=== PATIENT | female | born 1985 | race Caucasian/White ===

== ENCOUNTER → 2017-03-29 | Outpatient (REF) | payer OTHER | LOC: M SFHCCLAY 09:21 | DX: Z12.4 Encounter for screening for malignant neoplasm of cervix (principal); Z72.51 High risk heterosexual behavior | CPT/HCPCS: 87070 ==

== ENCOUNTER 2018-04-22 04:18 | Emergency (ER) | payer OTHER, SELFPAY ==
[~2018-04-22 04:18] MED LIST: MOTR200T44 PO; TYLE325T5 PO
[2018-04-22 05:07] LABS: HEMATOCRIT 39.7 % (36.0-47.0); HEMOGLOBIN 12.9 g/dl (12.0-15.5); MEAN CORPUSCULAR HEMOGLOBIN 29.7 pg (27.0-33.0); MEAN CORPUSCULAR HGB CONC 32.5 g/dl (32.0-36.5); MEAN CORPUSCULAR VOLUME 91.5 fl (80.0-96.0); PLATELET COUNT, AUTOMATED 232 10^3/uL (150-450); RED BLOOD COUNT 4.34 10^6/uL (4.00-5.40); WHITE BLOOD COUNT 10.6 10^3/uL (4.0-10.0)
[2018-04-22 05:36] LABS: AMPHETAMINES LEVEL URINE NEGATIVE (NEGATIVE); BARBITURATES URINE NEGATIVE (NEGATIVE); BENZODIAZEPINES URINE NEGATIVE (NEGATIVE); CANNABINOIDS URINE NEGATIVE (NEGATIVE); COCAINE METABOLITE URINE NEGATIVE (NEGATIVE); METHADONE URINE NEGATIVE (NEGATIVE); OPIATES URINE NEGATIVE (NEGATIVE); PHENCYCLIDINE URINE NEGATIVE (NEGATIVE)
[2018-04-22 05:48] LABS: HCG, SERUM QUALITATIVE NEGATIVE (NEGATIVE)
[2018-04-22 06:02] LABS: ACETAMINOPHEN LEVEL < 2.0 UG/ML (10.0-30.0); ALBUMIN 4.3 GM/DL (3.2-5.2); ALT/SGPT 58 U/L (12-78); BILIRUBIN,DIRECT < 0.1 MG/DL (0.0-0.2); BILIRUBIN,TOTAL 0.1 MG/DL (0.2-1.0); BLOOD UREA NITROGEN 10 MG/DL (7-18); CALCIUM LEVEL 8.5 MG/DL (8.5-10.1); CARBON DIOXIDE LEVEL 29 MEQ/L (21-32); CHLORIDE LEVEL 107 MEQ/L (98-107); CREATININE FOR GFR 0.58 MG/DL (0.55-1.30); ETHYL ALCOHOL (ETHANOL) 0.193 % (0.000-0.010); GLOMERULAR FILTRATION RATE > 60.0 (>60); GLUCOSE, FASTING 101 MG/DL (70-100); POTASSIUM SERUM 4.1 MEQ/L (3.5-5.1); SALICYLATE LEVEL < 1.7 MG/DL (5.0-30.0); SODIUM LEVEL 144 MEQ/L (136-145)
[2018-04-22 10:58] VITALS: BP 137/75
== END 2018-04-22 10:59 | disposition home or self-care (01) ==
LOC: M ED 04:18
DX: F10.229 Alcohol dependence with intoxication, unspecified (principal); Z88.0 Allergy status to penicillin; F17.210 Nicotine dependence, cigarettes, uncomplicated
CPT/HCPCS: 36415; 80048; 80076; 80307; 84443; 84703; 85027; 99284; G0480

== ENCOUNTER 2018-11-22 07:33 | Day surgery (SDC) | payer OTHER ==
[2018-11-22] VITALS (8 sets, daily range): BP systolic 98–137; BP diastolic 62–76
[~2018-11-22] VITALS: Ht 157.5 cm; Wt 56.0 kg
[~2018-11-22 07:33] MED LIST changes: +LR 1,000 ML IV ONE; +QC A650T3 PO
[2018-11-22] MEDS ORDERED: dexameTHASONE 4 MG/ML 1ML VIAL (J1100) As Ordered ONE (08:19)
[2018-11-22] MEDS ORDERED: PROPOFOL 200 MG/20 ML VIAL As Ordered ONE (08:19)
[2018-11-22] MEDS ORDERED: fentaNYL 250 MCG/5 ML INJECTION (J3010) As Ordered ONE (08:19)
[2018-11-22] MEDS ORDERED: ONDANSETRON 4MG/2ML VIAL (J2405) As Ordered ONE (08:19)
[2018-11-22] MEDS ORDERED: LIDOCAINE 2% INJ 100 MG/5 ML SDV (FOR ANES.) As Ordered ONE (08:19)
[2018-11-22] MEDS ORDERED: ROCURONIUM BROMIDE 50 MG/5 ML VIAL As Ordered ONE (08:19)
[2018-11-22] MEDS ORDERED: MIDAZOLAM INJ 2 MG/2 ML VIAL (J2250) As Ordered ONE (08:20)
[2018-11-22 08:25] LABS: HEMATOCRIT 40.9 % (36.0-47.0); HEMOGLOBIN 13.5 g/dl (12.0-15.5); MEAN CORPUSCULAR HEMOGLOBIN 30.6 pg (27.0-33.0); MEAN CORPUSCULAR VOLUME 92.7 fl (80.0-96.0); PLATELET COUNT, AUTOMATED 241 10^3/uL (150-450); RED BLOOD COUNT 4.41 10^6/uL (4.00-5.40); WHITE BLOOD COUNT 5.2 10^3/uL (4.0-10.0)
[2018-11-22 08:44] LABS: BLOOD UREA NITROGEN 14 MG/DL (7-18); CALCIUM LEVEL 8.9 MG/DL (8.5-10.1); CARBON DIOXIDE LEVEL 28 MEQ/L (21-32); CHLORIDE LEVEL 107 MEQ/L (98-107); CREATININE FOR GFR 0.71 MG/DL (0.55-1.30); GLOMERULAR FILTRATION RATE > 60.0 (>60); GLUCOSE, FASTING 93 MG/DL (70-100); SODIUM LEVEL 138 MEQ/L (136-145)
[2018-11-22 08:46] LABS: URINE PREG TEST NEGATIVE (NEGATIVE)
[2018-11-22] MEDS ORDERED: FLUORESCEIN 10% (100MG/ML) 5 ML VIAL As Ordered ONE (09:15)
[2018-11-22] MEDS ORDERED: BUPIVACAINE/EPIN 0.25% 30 ML VIAL As Ordered ONE (09:15)
[2018-11-22] MEDS ORDERED: ACETAMINOPHEN 1000MG 100ML IV BTL (OFIRMEV) (J0131 PER 10MG) As Ordered ONE (10:19)
[2018-11-22] MEDS ORDERED: KETOROLAC 60 MG/2 ML VIAL (J1885) As Ordered ONE (10:27)
[2018-11-22] MEDS ORDERED: METOCLOPRAMIDE INJ 10MG/2ML VIAL (J2765) As Ordered ONE (10:27)
[2018-11-22] MEDS ORDERED: PERCOCET 5MG/325MG TAB PO PRN (11:30)
[2018-11-22] MEDS ORDERED: PERCOCET PO (11:32)
[2018-11-22] MEDS ORDERED: IBUP80TA PO (11:32)
[2018-11-22] MEDS ORDERED: fentaNYL 100 MCG/2 ML INJECTION (J3010) IV PRN (12:00)
[2018-11-22] MEDS ORDERED: HYDROMORPHONE HCL 0.5 MG/ 0.5 ML SYRINGE (J1170 PER 1) IV PRN (12:00)
[2018-11-22] MEDS ORDERED: oxyCODONE 5MG TAB PO PRN (12:00)
[2018-11-22] MEDS: LR 1,000 ML IV SCH ×2 (12:00→20:00)
[2018-11-22] MEDS ORDERED: LR 1,000 ML IV SCH (12:00)
[2018-11-22] MEDS ORDERED: PROMETHAZINE INJ 25 MG/ML VIAL (J2550) IV PRN (12:00)
[2018-11-22] MEDS ORDERED: ONDANSETRON 4MG/2ML VIAL (J2405) IV PRN ×2 (12:00→18:30)
[2018-11-22] MEDS: PERCOCET 5MG/325MG TAB PO PRN ×2 (13:12→22:30)
[2018-11-22] MEDS: DOCUSATE SODIUM 100 MG CAP PO SCH (22:28)
[2018-11-23 02:00] VITALS: BP 102/56
[2018-11-23 06:00] VITALS: BP 114/57
[2018-11-23] MEDS: PERCOCET 5MG/325MG TAB PO PRN (06:20)
--- NOTE | 2018-11-23 07:26 | RO ---
DATE OF PROCEDURE: 11/22/2018 Romy is a 33-year-old female with extensive history of an enlarged fibroid uterus with heavy cycles as well as pelvic pain. After counseling in the office, the decision was made to proceed with a robotic-assisted total hysterectomy, removal of both tubes and cystoscopy. PREOPERATIVE DIAGNOSES: 1. Symptomatic enlarged fibroid uterus. 2. Pelvic pain. 3. Heavy menstrual cycle. POSTOPERATIVE DIAGNOSES: 1. Symptomatic enlarged fibroid uterus. 2. Pelvic pain. 3. Heavy menstrual cycle. PROCEDURE 1. Robotic-assisted total hysterectomy. 2. Bilateral salpingectomies 3. Myomectomy. 4. Cystoscopy. SURGEON: Dr. aBrry Da Silva. VIRTUALIZATION ENGINEER: ANTONIO Sigala ANESTHESIA: General COMPLICATIONS: None. ESTIMATED BLOOD LOSS: Less than 50 mL. FINDINGS: An extremely enlarged fibroid uterus with the fibroid measuring approximately 10-12 cm in size in the fundal area of the uterus. Normal-appearing tubes and ovaries. On cystoscopy bilateral urethral jets were noted. No evidence of any bladder injury noted. DESCRIPTION OF PROCEDURE: After obtaining informed consent the patient was taken to the operating room where general anesthetic was found to be adequate. She was then draped and prepped in the usual sterile fashion in the dorsal lithotomy position. At this point, a Piper catheter was placed in the bladder for drainage. We then placed a weighted speculum in the posterior fornix of the vagina using a Gonzalez retractor. The anterior lip of the cervix was then grasped with a single-tooth tenaculum. The HUMI uterine manipulator was then placed. At this point, we then turned our attention to the abdomen where 8 mm infraumbilical incision was made. Using the Veress needle the abdomen was insufflated with CO2 gas to approximately 3.5 liters. I then placed an 8 mm trocar under direct visualization, which will be used for robotic camera port. Then two 8 mm left lateral ports were placed under direct visualization as well as an 8 mm right lateral port. These were for robotic arm one and two as well as the assist port. At this point, the patient was placed in steep Trendelenburg. The robot was brought to the patient's right side. Proper targeting of the robot was performed. At this point, robotic arm one and two were docked. After proper docking of the robot the Vessel Sealer, as well as a bipolar grasper was placed. I then unscrubbed and went to the surgeon console and began the surgery. At this point the uterus was noted with a very large fibroid pushing in the posterior cul-de-sac. The left fallopian tube was identified. Using the vessel sealer the mesosalpinx was transected down to the utero-ovarian ligament, which was cauterized and cut using the Vessel Sealer. The round ligament was cauterized and cut in similar fashion. At this point, the anterior leaflet of the broad ligament was dissected to create a bladder flap. We then cauterized and cut the uterine artery all way down to the uterosacral ligament. The opposite side was done in similar fashion. The anterior leaflet of the broad ligament on the right side was dissected to complete the bladder flap. At this point the Vessel Sealer was removed. We then placed an EndoShears and anterior and posterior colpotomy was performed thereby transecting the entire cervix of the vaginal cuff. At this point, given the size of the fibroid as well as the uterus, a myomectomy to be performed to separate the uterus from the fibroid and both were removed through the vaginal opening. 1 mL of Furacin was given by the anesthesiologist. I then on unscrubbed and went to the surgeon console and closed the vaginal cuff using a #2-0 V-Loc suture in a running fashion. Pelvis copiously irrigated with normal saline and suctioned out. I then re-scrubbed and retrograde filled the bladder with 30 mL of normal saline. The Piper catheter was removed. A cystoscope was inserted. Cystoscopy was performed, bilateral urethral jets were noted. No evidence of any bladder injury noted. At this point the cystoscope was removed and the Piper catheter was replaced back in the bladder for drainage. The robot was completely undocked. All the ports removed and the robotic ports were then closed using #3-0 Vicryl in a subcuticular fashion. 0.25% Marcaine was placed for postoperative pain. The patient tolerated the procedure well. She was then transferred to recovery room in stable condition.
[2018-11-23] MEDS: DOCUSATE SODIUM 100 MG CAP PO SCH (08:55)
[2018-11-23] MEDS ORDERED: IBUPROFEN 800 MG TAB PO SCH (19:00)
== END 2018-11-23 11:00 | disposition home or self-care (01) ==
LOC: M SDC 07:33 → M MSPAV 12:20 → M SDC 11-23 11:00
PROVIDERS: ATTEND Obstetrics & Gynecology
DX: R10.2 Pelvic and perineal pain (principal); N92.0 Excessive and frequent menstruation with regular cycle; N85.2 Hypertrophy of uterus; D25.9 Leiomyoma of uterus, unspecified; N72 Inflammatory disease of cervix uteri; Z88.0 Allergy status to penicillin; Z88.5 Allergy status to narcotic agent
CPT/HCPCS: 36415; 58573; 80048; 84703; 85027; 86850; 86900; 86901; 88307; 96374; J0131; J0690; J1100; J1885; J2250; J2405; J2765; J3010

== ENCOUNTER → 2019-02-13 | Outpatient (CLI) | payer OTHER ==
[~2019-02-13] MED LIST changes: +IBUP80TA PO; -LR 1,000 ML IV ONE; +PERCOCET PO
== END ==
LOC: M OUTALCOH 08:20
PROVIDERS: ATTEND Psychiatry & Neurology Psychiatry
DX: Z03.89 Encounter for observation for other suspected diseases and conditions ruled out (principal)

== ENCOUNTER 2019-03-12 13:46 | Outpatient (RCR) | payer OTHER | END 2019-03-20 | LOC: M OUTALCOH 13:46 | PROVIDERS: ATTEND Psychiatry & Neurology Psychiatry | DX: Z03.89 Encounter for observation for other suspected diseases and conditions ruled out (principal) ==

== ENCOUNTER → 2019-12-05 | Outpatient (REF) | payer OTHER ==
[2019-12-05 13:03] LABS: APPEARANCE, URINE CLEAR (CLEAR); BACTERIA, URINE AUTO NEGATIVE (NEGATIVE); BILIRUBIN, URINE AUTO NEGATIVE (NEGATIVE); BLOOD, URINE BLOOD 2+ (NEGATIVE); COLOR, URINE YELLOW (YELLOW); GLUCOSE, URINE (UA) AUTO NEGATIVE (NEGATIVE); KETONE, URINE AUTO NEGATIVE (NEGATIVE); LEUKOCYTE ESTERASE, URINE AUTO NEGATIVE (NEGATIVE); MUCUS, URINE SMALL (NEGATIVE); NITRITE, URINE AUTO NEGATIVE (NEGATIVE); PROTEIN, URINE AUTO NEGATIVE (NEGATIVE); RBC, URINE AUTO 23 /HPF (0-3); SPECIFIC GRAVITY URINE AUTO 1.009 (1.002-1.035); SQUAMOUS EPITHELIAL CELL UR AU 1 /HPF (0-6); UROBILINOGEN, URINE AUTO 0.2 mg/dL (0.0-2.0); WBC, URINE AUTO 15 /HPF (0-3)
== END ==
LOC: M LAB REF 12:24
PROVIDERS: ATTEND Physician Assistant
DX: N39.0 Urinary tract infection, site not specified (principal)

== ENCOUNTER → 2019-12-19 | Outpatient (REF) | payer OTHER ==
[2019-12-19 12:20] LABS: HEMATOCRIT 37.8 % (36.0-47.0); HEMOGLOBIN 12.5 g/dl (12.0-15.5); MEAN CORPUSCULAR HEMOGLOBIN 30.2 pg (27.0-33.0); MEAN CORPUSCULAR HGB CONC 33.1 g/dl (32.0-36.5); MEAN CORPUSCULAR VOLUME 91.3 fl (80.0-96.0); PLATELET COUNT, AUTOMATED 168 10^3/uL (150-450); RED BLOOD COUNT 4.14 10^6/uL (4.00-5.40); WHITE BLOOD COUNT 3.4 10^3/uL (4.0-10.0)
== END ==
LOC: M SFHCCLAY 08:23
PROVIDERS: ATTEND Family Medicine
DX: R53.83 Other fatigue (principal)

== ENCOUNTER → 2020-01-16 | Outpatient (REF) | payer OTHER ==
[2020-01-16 17:22] LABS: ALBUMIN 4.2 GM/DL (3.2-5.2); BILIRUBIN,DIRECT 0.1 MG/DL (0.0-0.2); BILIRUBIN,TOTAL 0.5 MG/DL (0.2-1.0); TOTAL PROTEIN 7.5 GM/DL (6.4-8.2)
== END ==
LOC: M SFHCCLAY 11:09
PROVIDERS: ATTEND Family Medicine
DX: R10.811 Right upper quadrant abdominal tenderness (principal)

== ENCOUNTER → 2020-04-14 | Outpatient (REF) | payer OTHER ==
[2020-04-14 16:34] LABS: BLOOD UREA NITROGEN 15 MG/DL (7-18); CALCIUM LEVEL 9.3 MG/DL (8.5-10.1); CARBON DIOXIDE LEVEL 26 MEQ/L (21-32); CHLORIDE LEVEL 104 MEQ/L (98-107); CREATININE FOR GFR 0.65 MG/DL (0.55-1.30); GLOMERULAR FILTRATION RATE > 60.0 (>60); GLUCOSE, FASTING 74 MG/DL (70-100); POTASSIUM SERUM 4.1 MEQ/L (3.5-5.1); SODIUM LEVEL 137 MEQ/L (136-145)
[2020-04-14 16:48] LABS: MALB URINE SIEMENS 21.4 MG/L; MAU/CREAT RATIO 17.9 MCG/MG (0.0-30.0)
== END ==
LOC: M SFHCCLAY 13:51
PROVIDERS: ATTEND Family Medicine
DX: M54.9 Dorsalgia, unspecified (principal)

== ENCOUNTER → 2020-07-29 | Outpatient (REF) | payer OTHER ==
[2020-07-29 11:41] LABS: BASO % 0.5 % (0.0-1.0); EOS # 0.2 10^3/uL (0.0-0.5); EOS % 3.2 % (0.0-3.0); HEMATOCRIT 36.7 % (36.0-47.0); HEMOGLOBIN 11.5 g/dl (12.0-15.5); LYMPH # 2.2 10^3/uL (1.5-5.0); LYMPH % 37.4 % (24.0-44.0); MEAN CORPUSCULAR HEMOGLOBIN 29.1 pg (27.0-33.0); MEAN CORPUSCULAR HGB CONC 31.3 g/dl (32.0-36.5); MEAN CORPUSCULAR VOLUME 92.9 fl (80.0-96.0); MONO # 0.5 10^3/uL (0.0-0.8); NEUTROPHILS % 50.6 % (36.0-66.0); PLATELET COUNT, AUTOMATED 188 10^3/uL (150-450); RED BLOOD COUNT 3.95 10^6/uL (4.00-5.40); WHITE BLOOD COUNT 5.9 10^3/uL (4.0-10.0)
== END ==
LOC: M SFHCCLAY 08:45
PROVIDERS: ATTEND Family Medicine
DX: R59.1 Generalized enlarged lymph nodes (principal); R63.4 Abnormal weight loss

== ENCOUNTER → 2020-08-14 | Outpatient (REF) | payer OTHER ==
[2020-08-14 16:43] LABS: FREE T4 0.79 NG/DL (0.76-1.46); THYROID STIMULATING HORMONE 1.4 uIU/ML (0.358-3.740)
== END ==
LOC: M SFHCCLAY 10:27
PROVIDERS: ATTEND Family Medicine
DX: E04.1 Nontoxic single thyroid nodule (principal)